=== PATIENT | female | born 1995 | race Caucasian/White ===

== ENCOUNTER 2018-08-18 23:56 | Emergency (ER) | payer SELFPAY ==
[~2018-08-18] VITALS: Ht 160 cm; Wt 64.9 kg
--- NOTE | 2018-08-19 00:33 | NUR ---
Pt provided urine sample, sent to lab.
--- NOTE | 2018-08-19 00:34 | NUR ---
Dr. Gonzalez at bedside for MSE.
[2018-08-19] MEDS ORDERED: ONDANSETRON ODT 4 MG TAB.RAPDIS ONE (00:41)
[2018-08-19] MEDS ORDERED: LORAZEPAM 1 MG TABLET ONE (00:41)
[2018-08-19] MEDS ORDERED: LORAZEPAM 0.5 MG TABLET PO ONE (00:45)
[2018-08-19] MEDS ORDERED: ONDANSETRON ODT 4 MG TAB.RAPDIS SL ONE (00:45)
[2018-08-19 00:57] LABS: *URINE HCG, QUAL NEGATIVE (NEGATIVE)
[2018-08-19 01:05] LABS: *AMPHETAMINE, URINE NEGATIVE (NEGATIVE); *BARBITURATE, URINE NEGATIVE (NEGATIVE); *CANNABINOID, URINE POSITIVE (NEGATIVE); *COCCAINE, URINE NEGATIVE (NEGATIVE); *OPIATE, URINE NEGATIVE (NEGATIVE); *PHENCYCLIDINE SCREEN,URINE NEGATIVE (NEGATIVE)
[2018-08-19] MEDS ORDERED: HALOPERIDOL LACTATE 5 MG/1 ML VIAL IM ONE (01:45)
[2018-08-19] MEDS ORDERED: HALOPERIDOL LACTATE 5 MG/1 ML VIAL ONE (01:48)
--- NOTE | 2018-08-19 06:57 | NUR ---
Report given to Joe mckinney.
--- NOTE | 2018-08-19 07:38 | NUR ---
PT WAS D/C'd TO HOME. D/C INSTRUCTIONS GIVEN TO THE PT. NO S/S OF DISTRESS AT THE TIME OF DISCHARGE. NO SOB. NO N/V. PT DENIES PAIN.
[2018-08-19 07:46] VITALS: BP 128/70
== END 2018-08-19 07:47 | disposition home or self-care (01) ==
LOC: ER 08-19 00:01
DX: F41.9 Anxiety disorder, unspecified (principal); F10.129 Alcohol abuse with intoxication, unspecified; F17.290 Nicotine dependence, other tobacco product, uncomplicated; F12.10 Cannabis abuse, uncomplicated; Y90.8 Blood alcohol level of 240 mg/100 ml or more
CPT/HCPCS: 36415; 80307; 84703; 96372; 99284; G0480; J1630; A4663; Q0162